=== PATIENT | female | born 1950 | race Caucasian/White ===

== ENCOUNTER 2022-03-13 19:11 | Emergency (ER) | payer OTHER, MEDICARE, BC ==
[2022-03-13] MEDS ORDERED: HYDROcodone/Acetaminophen 10/325 mg Tablet ONE (19:31)
[2022-03-13] MEDS ORDERED: Ibuprofen 800 MG TAB ONE (19:31)
[2022-03-13] MEDS ORDERED: Bupivacaine 0.5% 10 ML VIAL ONE (19:36)
== END 2022-03-13 20:44 | disposition home or self-care (01) ==
LOC: BURERS 19:11
DX: S52.572A Other intraarticular fracture of lower end of left radius, initial encounter for closed fracture (principal); W01.0XXA Fall on same level from slipping, tripping and stumbling without subsequent striking against object, initial encounter
CPT/HCPCS: 25605; J3490

== ENCOUNTER 2022-04-02 11:54 | Emergency (ER) | payer MEDICARE, BC | END 2022-04-02 12:23 | disposition home or self-care (01) | LOC: BURERS 11:54 | DX: Z47.89 Encounter for other orthopedic aftercare (principal); E03.9 Hypothyroidism, unspecified; K21.9 Gastro-esophageal reflux disease without esophagitis; E78.00 Pure hypercholesterolemia, unspecified | CPT/HCPCS: 99283 ==

== ENCOUNTER 2023-01-12 16:12 | Emergency (ER) | payer MEDICARE, BC ==
[2023-01-12] MEDS ORDERED: dilTIAZem 25 MG/5 ML VIAL ONE (16:32)
[2023-01-12 16:51] LABS: Hematocrit 42.9 % (36.0-47.0); Mean Corpuscular HGB CONC 30.4 g/dL (32.0-36.0); Mean Corpuscular Hemoglobin 26.2 pg (27.0-31.0); Mean Corpuscular Volume 86.4 fl (78.0-98.0); Platelet Count 177 10x3/uL (130-400); RBC Distribution Width 14.1 % (11.5-14.5); Red Blood Cell (RBC) Count 4.96 mill/uL (4.20-5.40); White Blood Cell (WBC) Count 3.4 10x3/uL (4.8-10.8)
[2023-01-12 17:08] LABS: ALT (SGPT) 26 U/L (8-55); AST (SGOT) 24 U/L (5-34); Alkaline Phosphatase 58 U/L (40-110); Anion Gap 16 mmol/L (10-20); BUN (Urea Nitrogen) 12 mg/dL (9.8-20.1); Bilirubin, Total 0.3 mg/dL (0.2-1.2); Calc. Creatinine Clearance 0 mL/min (70-130); Calcium 8.6 mg/dL (7.8-10.44); Carbon Dioxide 21 mmol/L (23-31); Chloride 110 mmol/L (98-107); Estimated GFR 81; Globulin 2.7 g/dL (2.4-3.5); Glucose 95 mg/dL (83-110); Potassium 3.9 mmol/L (3.5-5.1); Protein, Total 6.7 g/dL (5.8-8.1); Sodium 143 mmol/L (136-145)
[2023-01-12 17:10] LABS: Troponin I Less than 0.010 ng/mL (< 0.028)
[2023-01-12 17:11] LABS: Band 6 % (5-11); Lymphocytes 46 % (21-51); MDiff Complete? YES; Monocytes 17 % (0-10); Neutrophil 27 % (42-75); Reactive Lymphocytes 3 % (0-10)
[2023-01-12] MEDS ORDERED: dilTIAZem 125 MG/25 ML SDV ONE (17:23)
[2023-01-12] MEDS ORDERED: Digoxin 0.5 MG/2 ML AMP ONE (19:28)
== END 2023-01-12 23:56 | disposition still patient (30) ==
LOC: BURERS 16:12
DX: U07.1 COVID-19 (principal); I48.91 Unspecified atrial fibrillation; E03.9 Hypothyroidism, unspecified
CPT/HCPCS: 71045; 80053; 83880; 84443; 84484; 85025; 93005; 94760; 96374; 96375; 96376; J1160